=== PATIENT | male | born 1945 | race Caucasian/White ===

== ENCOUNTER → 2017-02-01 | Day surgery (SDC) | payer MEDICARE, OTHER ==
[2012-04-04 22:38] VITALS: BP 110/61
[~2017-02-01] MED LIST: ACTOS30 MG PO; AVAPRO75 MG PO; FISH OIL500 MG PO; GOOD NEIGHBOR325 MG PO; HEALTH CARE AM500 M3 PO; LIPITOR10 MG PO; METFORMIN500 MG PO; PHARMASSURE LUTE6 MG PO; ZYLOPRIM 300MG300 MG PO
== END ==
LOC: MSO 08:40
DX: Z12.11 Encounter for screening for malignant neoplasm of colon (principal); D12.2 Benign neoplasm of ascending colon; K57.30 Diverticulosis of large intestine without perforation or abscess without bleeding; G47.33 Obstructive sleep apnea (adult) (pediatric)
CPT/HCPCS: 00810; J7030

== ENCOUNTER 2018-10-18 13:00 | Outpatient (RCR) | payer MEDICARE, OTHER ==
[2012-04-04 22:38] VITALS: BP 110/61
== END 2018-10-18 13:30 | disposition home or self-care (01) ==
LOC: PT 13:00
DX: M54.41 Lumbago with sciatica, right side (principal); M54.42 Lumbago with sciatica, left side
CPT/HCPCS: G8981-GP; G8982-GP; G8983-GP

== ENCOUNTER → 2019-03-04 | Outpatient (CLI) | payer MEDICARE, OTHER ==
[2012-04-04 22:38] VITALS: BP 110/61
== END ==
LOC: LAB 10:11
PROVIDERS: Otolaryngology
DX: R22.1 Localized swelling, mass and lump, neck (principal)

== ENCOUNTER → 2019-03-08 | Outpatient (CLI) | payer MEDICARE, OTHER ==
[2012-04-04 22:38] VITALS: BP 110/61
== END ==
LOC: RAD 07:44
DX: K11.0 Atrophy of salivary gland (principal); R22.1 Localized swelling, mass and lump, neck
CPT/HCPCS: Q9967

== ENCOUNTER → 2024-04-26 | Outpatient (CLI) | payer MEDICARE, OTHER | LOC: RAD 11:47 | DX: S90.32XA Contusion of left foot, initial encounter (principal) ==

== ENCOUNTER 2024-05-08 10:02 | Outpatient (RCR) | payer MEDICARE, OTHER | END 2024-05-27 | disposition home or self-care (01) | LOC: CARDREHAB | DX: I25.5 Ischemic cardiomyopathy (principal); I25.10 Atherosclerotic heart disease of native coronary artery without angina pectoris; I50.22 Chronic systolic (congestive) heart failure ==

== ENCOUNTER → 2024-05-08 | Outpatient (CLI) | payer MEDICARE, OTHER | LOC: RAD 11:12 | DX: R10.32 Left lower quadrant pain (principal) ==

== ENCOUNTER 2024-06-05 14:00 | Outpatient (RCR) | payer MEDICARE, OTHER | END 2024-06-26 | disposition home or self-care (01) | LOC: CARDREHAB | DX: I25.10 Atherosclerotic heart disease of native coronary artery without angina pectoris (principal); I25.5 Ischemic cardiomyopathy; I50.22 Chronic systolic (congestive) heart failure ==